=== PATIENT | male | born 1975 | race African-American/Black ===

== ENCOUNTER 2022-12-18 10:39 | Inpatient (IN) | payer OTHER ==
[~2022-12-18] VITALS: Ht 185.4 cm; Wt 120.2 kg
[2022-12-18 11:00] VITALS: O2SAT 95
[2022-12-18 11:06] LABS: Basophils # (auto) 0 10 ^3/uL (0-0.2); Eosinophils # (auto) 0.1 10 ^3/uL (0-0.8); Hematocrit 44.2 % (41.0-53.0); Hemoglobin 14.6 g/dL (13.5-17.5); Mean Corpuscular Volume 77.2 fL (80.0-100.0); Monocytes # (auto) 0.4 10 ^3/uL (0-1.3)
[2022-12-18 11:08] LABS: Basophils % (auto) 0.7 % (0.0-2.0); Eosinophils % (auto) 1.8 % (0.0-7.0); Lymphocytes # (auto) 1.9 10 ^3/uL (0.4-5.4); Lymphocytes % (auto) 39.8 % (10.0-50.0); Mean Corpuscular Hemoglobin 25.4 pg (28.0-32.0); Mean Corpuscular Hgb Conc. 32.9 g/dL (32.0-36.0); Monocytes % (auto) 8.2 % (0.0-12.0); Neutrophils # (auto) 2.3 10 ^3/uL (1.6-8.6); Neutrophils % (auto) 49.5 % (37.0-80.0); Nucleated Red Blood Cells % 0.1 %; Red Blood Cells 5.73 10^6/uL (4.5-5.90); White Blood Cell 4.7 10^3/uL (4.4-10.8)
[2022-12-18 11:33] LABS: Albumin 4.1 g/dL (3.4-5.0); Calcium 9.5 mg/dL (8.5-10.1); Potassium 4.8 mmol/L (3.5-5.1)
[2022-12-18 11:37] LABS: Bilirubin, Total 0.4 mg/dL (0.2-1.0); Total Protein 7.9 g/dL (6.4-8.2)
[2022-12-18 11:58] LABS: BUN/Creatinine Ratio 12.3 (10.0-20.0)
[2022-12-18] MEDS ORDERED: ASPirin 325 MG TAB PO ONE (13:00)
[2022-12-18] MEDS ORDERED: NITROGLYCERIN 0.4 MG SL TAB SL PRN (13:15)
[2022-12-18] MEDS ORDERED: DEXTROSE (50%) 50ML SYRG IV PRN (13:15)
[2022-12-18] MEDS ORDERED: MORPHINE SULFATE INJ 2 MG/ml SYRG IV PRN (13:15)
[2022-12-18] MEDS ORDERED: ENOXAPARIN SOD 120 MG/0.8 ML SYRINGE SC SCH (13:25)
[2022-12-18] MEDS: METOPROLOL SUCCINATE XL 50 MG TAB PO SCH (13:58)
[2022-12-18] MEDS: ENOXAPARIN SOD 120 MG/0.8 ML SYRINGE SC SCH ×2 (13:59→21:59)
[2022-12-18] MEDS: ACCU-CHEK COMFORT CURVE STRIP VI SCH ×2 (16:56→21:55)
[2022-12-18] MEDS: InsuLIN REG 1unit/0.01ml Soln (100units/ml) SC SCH ×2 (16:56→21:59)
[2022-12-18 18:00] LABS: Alcohol, Urine < 3.0 mg/dL (0-10); Amphetamine Screen, Urine NEGATIVE (NEGATIVE); Barbiturate Scree,Urine NEGATIVE (NEGATIVE); Benzodiazephine Screen, Urine NEGATIVE (NEGATIVE); Cannabinoid Screen, Urine NEGATIVE (NEGATIVE); Cocaine Screen, Urine NEGATIVE (NEGATIVE); Opiate Scree,Urine NEGATIVE (NEGATIVE); Phencyclidine Screen, Urine NEGATIVE (NEGATIVE)
[2022-12-18 18:21] LABS: Urine Bacteria NONE SEEN /hpf (None Seen); Urine Blood Negative /uL (Negative); Urine Specific Gravity 1.014 (1.001-1.035); Urine WBC <1 /hpf (0 - 3)
[2022-12-18 19:16] LABS: INR 1.08 (0.9-1.15); Partial Thromboplastin Time 37.5 SEC (24.5-34.5)
[2022-12-18 19:35] VITALS: PULSE 89; RESP 16; O2SAT 94
[2022-12-18] MEDS: ATORVASTATIN 20 MG TAB PO SCH (21:59)
[2022-12-19] MEDS: ACCU-CHEK COMFORT CURVE STRIP VI SCH ×4 (06:43→22:00)
[2022-12-19] MEDS: InsuLIN REG 1unit/0.01ml Soln (100units/ml) SC SCH ×4 (06:44→22:00)
[2022-12-19 07:48] VITALS: PULSE 88; RESP 14; O2SAT 95
[2022-12-19] MEDS ORDERED: ADENOSINE 95 MG in GIVE UN-DILUTED 0 ML IV STA (07:57)
[2022-12-19] MEDS: LISINOPRIL 5 MG TAB PO SCH (10:00)
[2022-12-19] MEDS ORDERED: ASPirin 81 mg TAB PO ONE (10:00)
[2022-12-19] MEDS ORDERED: PANTOPRAZOLE 40 MG/10 ML VIAL INJ IV SCH (10:00)
[2022-12-19] MEDS: METOPROLOL SUCCINATE XL 50 MG TAB PO SCH (10:00)
[2022-12-19] MEDS: PANTOPRAZOLE 40 MG TAB PO SCH (11:37)
[2022-12-19] MEDS: ENOXAPARIN SOD 120 MG/0.8 ML SYRINGE SC SCH ×2 (11:40→22:00)
[2022-12-19 13:05] VITALS: BP 117/81; PULSE 93; RESP 19; TEMP 97.4; O2SAT 95
[2022-12-19 16:49] VITALS: BP 117/83; PULSE 81; RESP 21; TEMP 97.9; O2SAT 93
[2022-12-19] MEDS ORDERED: APIX2.5T PO (17:58)
[2022-12-19] MEDS ORDERED: ASPI-543 (17:58)
[2022-12-19] MEDS ORDERED: ATOR40TA52 PO (18:25)
[2022-12-19] MEDS ORDERED: AMIT50TA10 PO (18:25)
[2022-12-19] MEDS ORDERED: DULO60CA41 PO (18:25)
[2022-12-19] MEDS ORDERED: INDO50CA82 PO (18:25)
[2022-12-19] MEDS ORDERED: LISI40TA16 PO (18:25)
[2022-12-19] MEDS ORDERED: METF-370 PO (18:25)
[2022-12-19] MEDS ORDERED: ALLO300T2 PO (18:25)
[2022-12-19] MEDS ORDERED: HYDR25TA4 PO (18:25)
[2022-12-19] MEDS ORDERED: INSUINJ2 SC (18:25)
[2022-12-19] MEDS ORDERED: INSREG3 SC (18:25)
[2022-12-19 18:50] VITALS: RESP 16
[2022-12-19 20:00] VITALS: PULSE 96; RESP 19; O2SAT 95
[2022-12-19 22:00] VITALS: BP 141/82; PULSE 85; RESP 19; TEMP 97.9; O2SAT 93
[2022-12-19] MEDS ORDERED: TEMAZEPAM 15 MG CAP PO PRN (22:15)
[2022-12-19] MEDS: ATORVASTATIN 20 MG TAB PO SCH (22:54)
[2022-12-20 05:00] VITALS: BP 139/103; PULSE 104; RESP 19; TEMP 98.5; O2SAT 94
[2022-12-20] MEDS: InsuLIN REG 1unit/0.01ml Soln (100units/ml) SC SCH ×2 (06:18→12:15)
[2022-12-20] MEDS: ACCU-CHEK COMFORT CURVE STRIP VI SCH ×2 (06:19→10:50)
[2022-12-20] MEDS: HYDROcodone-ACET 10/325MG TAB PO PRN ×2 (08:13→12:52)
[2022-12-20] MEDS: PANTOPRAZOLE 40 MG TAB PO SCH (08:13)
[2022-12-20 08:15] VITALS: PULSE 106
[2022-12-20 08:30] VITALS: BP 149/101; PULSE 113; RESP 19; TEMP 97.8
[2022-12-20 09:00] VITALS: BP 149/98; PULSE 113; RESP 19; TEMP 97.8; O2SAT 94
[2022-12-20] MEDS: LISINOPRIL 5 MG TAB PO SCH (10:46)
[2022-12-20] MEDS: METOPROLOL SUCCINATE XL 50 MG TAB PO SCH (10:46)
[2022-12-20] MEDS: ENOXAPARIN SOD 120 MG/0.8 ML SYRINGE SC SCH (10:52)
[2022-12-20 11:11] VITALS: BP_SYST 117; BP_SYST 149; BP_DIAS 78; BP_DIAS 98; PULSE 108; PULSE 99; RESP 19; TEMP 97.8; TEMP 97.9; O2SAT 94; O2SAT 98
[2022-12-20 13:00] VITALS: BP 117/78; PULSE 99; RESP 19; TEMP 97.9; O2SAT 98
[2022-12-20] MEDS ORDERED: ENOXAPARIN SOD 120 MG/0.8 ML SYRINGE SC SCH (22:00)
== END 2022-12-20 17:06 | DRG 282 ==
LOC: EEVIPCON 10:39 → ER 10:39 → EDBD 10:39 → TELE 13:11 → TELE-WESTW 12-19 10:25
PROVIDERS: ADMIT Nurse Practitioner Family; ATTEND Internal Medicine
DX: I21.9 Acute myocardial infarction, unspecified (principal); I10 Essential (primary) hypertension; E78.5 Hyperlipidemia, unspecified; E66.9 Obesity, unspecified; K21.9 Gastro-esophageal reflux disease without esophagitis; M10.9 Gout, unspecified; E11.9 Type 2 diabetes mellitus without complications; Z79.4 Long term (current) use of insulin; Z79.82 Long term (current) use of aspirin; Z79.899 Other long term (current) drug therapy; Z83.3 Family history of diabetes mellitus; Z87.891 Personal history of nicotine dependence; Z68.34 Body mass index [BMI] 34.0-34.9, adult
CPT/HCPCS: 36415; 71045; 78452; 80053; 80307; 81001; 82962; 83036; 83735; 84443; 84484; 85025; 85610; 85730; 93005; 93017; 93306; G0378; J0153; J1815